=== PATIENT | male | born 1980 ===

== ENCOUNTER → 2023-05-04 00:10 | Outpatient (CLI) | payer OTHER, SELFPAY ==
--- NOTE | 2023-05-04 | DI.MRI_ITS ---
Exam(s) MR LOWER JOINT RT WO EXAM: MR LOWER JOINT RT WO CLINICAL HISTORY: INSTABILITY, PAIN WITH BENDING, XR NEG, RT KNEE PAIN, M25.561. TECHNIQUE: Multiplanar multisequence MRI was performed. COMPARISON: No exams were available for comparison FINDINGS: BONES: There is no fracture or contusion pattern. JOINTS: Articular cartilage is unremarkable. No effusion is present. TENDONS: Extensor mechanism: Unremarkable. Medial retinaculum: Unremarkable. Lateral retinaculum: Unremarkable. Popliteus: Unremarkable. MUSCLES: Unremarkable. MENISCI: There is degenerative signal seen in the body of the medial meniscus. No evidence of a tear seen. There is degenerative signal seen at the root of the lateral meniscus. No evidence of a meni scal tear. SOFT TISSUES: There is a tiny popliteal cyst. LIGAMENTS: Anterior Cruciate: There is mild hyperintense signal seen in the distal anterior cruciate ligament mccartney spicious for sprain. Posterior Cruciate: Unremarkable. Medial Collateral:Unremarkable. Lateral Collateral: Unremarkable. OTHER: IMPRESSION: 1. Degenerative changes seen in the medial and lateral menisci but no evidence of a tear. 2. Mild hyperintense signal seen in the ACL which may represent a sprain. 3. No evidence of a ligament tear. 4. Tiny popliteal cyst. DATA REPOSITORY:
== END ==
PROVIDERS: Visit Provider Nurse Practitioner Adult Health
DX: M17.11 Unilateral primary osteoarthritis, right knee (principal)
CPT/HCPCS: 73721

== ENCOUNTER → 2023-12-17 17:55 | Emergency (ER) | payer OTHER, SELFPAY ==
[2023-12-17] VITALS (39 sets, daily range): BP systolic 122–159; BP diastolic 78–103; PULSE 73–102; RESP 11–24; TEMP 36.5; O2SAT 90–100
--- NOTE | 2023-12-17 19:45 | DI.CT_ITS ---
Exam(s) CT ABDOMEN PELVIS W EXAM: CT ABDOMEN PELVIS W CLINICAL HISTORY: abd pain TECHNIQUE: Imaging Protocol: Axial computed tomography images with coronal and sagittal reformatted images were created and reviewed. CONTRAST MATERIAL: Intravenous: Omnipaque 350 Contrast volume:100 mL Oral: No COMPARISON: No exams were available for comparison FINDINGS: ABDOMEN: Lung Bases: Normal where visualized. Liver: Normal density. No measurable mass. Portal, Superior Mesenteric, and Splenic Veins: Unremarkable. Gallbladder and Biliary Tract: No radiodense calculus or dilation. Pancreas: Normal density, no abnormal calcifications or inflammatory process. Spleen: Normal. Adrenals: No masses seen. Kidneys: Normal size, contour and axis. No radiodense stones or obstructive uropathy. No masses seen. Abdominal Aorta: Abdominal portion non-dilated. Bowel: There is a 2.5 x 1.7 cm fat density lesion in the small in a small-bowel loop in the left lowe r quadrant of the abdomen. (Series 9, image 65). There is a smaller lipoma in an adjacent small bow el loop. There does appear to be an entero entero intussusception just proximal to the lesion. It m easures approximately 2.3 cm in length. No distended bowel loops are seen proximally. The appendix is fluid-filled but no Opal appendiceal inflammatory changes are seen. The appendix measures 7 mm in diameter. Peritoneal Cavity: No ascites, collection or mesenteric inflammatory response. No free air. Lymph Nodes: Within normal limits. Bones: Within normal limits for the patient's age. Soft Tissues: Unremarkable. PELVIS: Bladder: Symmetric distention, no gross wall thickening. Reproductive Organs: Unremarkable as visualized. Lymph Nodes: Within normal limits. Bones: Within normal limits for the patient's age. IMPRESSION: There is an entero entero intussusception in the small bowel in the left lower quadrant. There does appear to be an associated 2.5 x 1.7 cm lipoma in the small bowel at the site of the intussusception. No small bowel obstruction is seen. Plain film follow-up and/or repeat CT scan are suggested to keshawn tran for small-bowel obstruction. Unexpected findings RADIATION DOSE DELIVERED: Total DLP DATA REPOSITORY: All CT scans at this facility are submitted to the National Radiology Data Registry (NRDR) Dose Index Registry (DIR) with the [employer] (ACR). RADIATION OPTIMIZATION: All CT scans at this facility use at least one of these dose optimization te chniques: automated exposure control; mA and/or kV adjustment per patient size (includes targeted exa ms where dose is matched to clinical indication); or iterative reconstruction.
[2023-12-17] MEDS: Normal Saline Flush 10 ML SYR IVP (20:34)
[2023-12-17 20:36] LABS: Abs Immature Grans 0.03 10^3/uL (0.0-0.06); Absolute Basophil Count 0.06 10^3/uL (0.0-0.2); Absolute Eosinophil Count 0.27 10^3/uL (0.0-0.7); Absolute Lymphocyte Count 2.27 10^3/uL (1.2-3.4); Absolute Monocyte Count 0.84 10^3/uL (0.1-0.8); Basophils % 0.8 %; Eosinophils % 3.5 %; HCT 41.6 % (40.0-50.0); HGB 14.1 g/dL (13.5-17.5); Immature Grans % 0.4 %; Lymphocytes % 29.6 %; MCH 30.9 pg (27.0-33.0); MCHC 33.9 % (32.0-36.0); MCV 91 fL (80-95); MPV 9.3 fL (8.0-11.0); Neutrophils % 54.7 %; Platelet Count 290 10^3/uL (130-400); RBC 4.56 10^6/uL (4.36-5.78); RDW-SD 40.2 fL; WBC 7.67 10^3/uL (4.4-10.8)
[2023-12-17 20:49] LABS: PTT Activated 26.1 sec (23.6-32.8); Prothrombin Time 10.4 sec (9.1-11.1)
[2023-12-17 20:51] LABS: ALT 41 U/L (16-63); AST 26 U/L (15-37); Alkaline Phosphatase 79 U/L (46-116); Anion Gap 8.2 mmol/L (3-11); BUN 26 mg/dL (7-18); Bilirubin, Total 0.32 mg/dL (0.2-1.0); CO2 26.8 mmol/L (21.0-32.0); CREATININE 1.1 mg/dL (0.70-1.30); Calcium 9.2 mg/dL (8.5-10.1); Chloride 106 mmol/L (98-107); Estimated GFR 85.95 (mL/min/1.73m2); Glucose 103 mg/dL (74-106); Potassium 4.1 mmol/L (3.5-5.1); Sodium 141 mmol/L (136-145); Total Protein 7.4 g/dL (6.4-8.2)
[2023-12-17] MEDS: Normal Saline - Diluent 50 ML VIAL IJ (21:10)
[2023-12-17] MEDS: Omnipaque 350 MG/ML 100 ML BTL IJ (21:11)
--- NOTE | 2023-12-17 22:42 | W.ED.GENAD ---
Discharge Plan Discharge Details Chief Complaint: GI Bleed Primary Care Provider: Em Patel ED Provider: Fidel Lynch General Mode of arrival: ambulatory. Date/Time Provider Initiated Documentation: 12/17/23 18:21. Limitations to Documentation: no limitations. Information obtained by: patient and RN notes reviewed. History of Present Illness 43 year old M presents to the emergency department with the chief complaint of Rectal bleeding, described as moderate, Patient started experiencing this hour(s) (8) and it has been constant. No relieving factors improve symptom(s), No exacerbating factors reported . Patient did receive the following treatments prior to arrival, none General Stated Complaint: GI Bleed WANDA: 3 Review of Systems Constitutional Constitutional: Denies chills, Denies fever(s), Denies headache(s) and Denies lethargy ENT Ears, Nose, Mouth, and Throat: Denies headache(s) Cardiovascular Cardiovascular: Denies chest pain, Denies syncope, Denies rapid heart rate and Denies dyspnea Respiratory Respiratory: Denies dyspnea Gastrointestinal Gastrointestinal: Reports as per HPI, Reports melena, Reports hematochezia, Denies constipation, Denies diarrhea, Reports loose stools, Denies vomiting and Denies hematemesis Integumentary/Breasts Skin/Breast: Denies unusual bruising Neurologic Neurologic: Denies syncope and Denies headache(s) Exam Const General: cooperative Orientation: alert, awake and oriented x3 Resp Effort & Inspection: normal respiratory effort and able to speak in complete sentences Auscultation: clear to auscultation bilaterally Cardio Rate: regular rate Rhythm: regular rhythm Heart Sounds: S1 normal and S2 normal GI Palpation: soft, not firm, no guarding, no masses, no pulsatile masses, not rigid and tender in the LLQ and in the RLQ; not at McBurney's point, not suprapubicly, Tamayo's sign negative and Rovsing's sign negative Auscultation: normal bowel sounds Back/Spine/Pelvis Back: no CVA tenderness Neuro General: patient alert, patient awake, patient oriented x3, gait normal and moves all extremities Course Vital Signs Vital signs: Vital Signs Temperature 36.5 C 12/17/23 18:05 Pulse 102 H 12/17/23 18:05 Respiratory Rate 16 12/17/23 18:05 Blood Pressure 138/97 H 12/17/23 18:05 Pulse Oximetry 100 12/17/23 18:05 Temperature 36.5 C 12/17/23 18:05 Temperature Source Tympanic 12/17/23 18:05 Pulse 80 12/17/23 21:00 Pulse 86 12/17/23 21:30 Respiratory Rate 14 12/17/23 21:30 Respiratory Effort Normal 12/17/23 20:06 Blood Pressure 136/100 H 12/17/23 21:00 Blood Pressure Mean 107 12/17/23 21:00 Pulse Oximetry 93 12/17/23 21:30 Oxygen Delivery Method Room Air 12/17/23 18:05 Oxygen Flow Rate 0 12/17/23 18:05 Pain Level 4 12/17/23 20:06 Lab/Test Results Lab/Test Results: Laboratory Tests Range/Units 12/17/23 20:24 WBC (4.4-10.8) 10^3/uL 7.67 RBC (4.36-5.78) 10^6/uL 4.56 Hgb (13.5-17.5) g/dL 14.1 Hct (40.0-50.0) % 41.6 MCV (80-95) fL 91 MCH (27.0-33.0) pg 30.9 MCHC (32.0-36.0) % 33.9 RDW (11.8-14.1) % 12.0 Plt Count (130-400) 10^3/uL 290 MPV (8.0-11.0) fL 9.3 Immature Gran % % 0.4 Neutrophils % % 54.7 Lymphocytes % % 29.6 Monocytes % % 11.0 Eosinophils % % 3.5 Basophils % % 0.8 Nucleated RBC % (0.0-0.3) % 0.0 Absolute Neutrophils (1.2-6.7) 10^3/uL 4.20 Absolute Lymphocytes (1.2-3.4) 10^3/uL 2.27 Absolute Monocytes (0.1-0.8) 10^3/uL 0.84 H Absolute Eosinophils (0.0-0.7) 10^3/uL 0.27 Absolute Basophils (0.0-0.2) 10^3/uL 0.06 PT (9.1-11.1) sec 10.4 INR (0.9-1.1) 1.0 APTT (23.6-32.8) sec 26.1 Sodium (136-145) mmol/L 141 Potassium (3.5-5.1) mmol/L 4.1 Chloride (98-107) mmol/L 106 Carbon Dioxide (21.0-32.0) mmol/L 26.8 Anion Gap (3-11) mmol/L 8.2 BUN (7-18) mg/dL 26 H Creatinine (0.70-1.30) mg/dL 1.1 Est GFR (CKD-EPI 2020) (mL/min/1.73m2) 85.95 Glucose (74-106) mg/dL 103 Calcium (8.5-10.1) mg/dL 9.2 Magnesium (1.8-2.4) mg/dL 2.0 Total Bilirubin (0.2-1.0) mg/dL 0.32 AST (15-37) U/L 26 ALT (16-63) U/L 41 Alkaline Phosphatase (46-116) U/L 79 Total Protein (6.4-8.2) g/dL 7.4 Albumin (3.4-5.0) g/dL 4.0 ABO/Rh O Positive Antibody Screen NEGATIVE Medical Decision Making Patient presenting to the emergency department for chief complaint of abnormal stool color and lower abdominal pain and cramping. Patient reports beat like loose stools with some signs of bleeding. This started this morning along with the abdominal cramping. Patient denies any injury or trauma, does state that he takes meloxicam twice daily for migraine headaches patient denies any syncope, lightheadedness, shortness of breath or chest pain, patient denies any vomiting blood or GERD type symptoms denies any urinary symptoms. Physical exam shows mild tenderness to bilateral lower quadrants otherwise is unremarkable. Patient already had occult stool testing which showed positive for blood causing him to be sent here from [facility]. Will plan on checking labs and CT imaging. Patient is not hypotensive and checking vitals showed mild tachycardia but otherwise stable findings so we will hold off on any interventions unless patient decompensates. Reviewed patient's labs and CBC is unremarkable, CMP is also unremarkable except for BUN being elevated which may be subtle sign of GI bleed otherwise nondiagnostic labs. CT imaging reviewed along with radiologist interpretation that does show a short segment of small bowel that has evidence of intussusception. Given GI bleed and evidence of intussusception did contact [facility] who stated that they did not have any [facility] beds available. Will contact [facility] to see about their bed availability. After discussion of case with [facility] they also do not have bed availability. Will contact general surgeon on-call to discuss case with potential plan of boarding patient in the emergency department for abdominal assessment labs and potential repeat scan tomorrow. Discussed case with our general surgeon and she did request that I speak with general surgery at [facility] given the red current jelly and intussusception finding which general surgery was paged for. Imaging Data Radiologic Study: Imaging: CT Scan Radiologist's impression: Exam(s) PROCEDURE INFORMATION: Exam: CT Abdomen And Pelvis With Contrast Exam date and time: 12/17/2023 9:14 PM Age: 43 years old Clinical indication: Generalized abdominal pain TECHNIQUE: Imaging protocol: Computed tomography of the abdomen and pelvis with contrast. Contrast material: OMNI 350; Contrast volume: 100 ml; Contrast route: INTRAVENOUS (IV); COMPARISON: MR LOWER JOINT RT WO 05/04/2023 8:48 AM FINDINGS: Lungs: No acute infiltrate in either lung base. Liver: Normal. No mass. Gallbladder and biliary ducts: Normal. No calcified stones. No ductal dilation. Pancreas: Normal. No ductal dilation. Spleen: Normal. No splenomegaly. Adrenal glands: Normal. No mass. Kidneys and ureters: No hydronephrosis. No calcified renal or ureteral stones. No perinephric stranding or perinephric fluid. Stomach and bowel: No CT evidence of colitis or diverticulitis. Within the lower mid abdominal region on axial images 57-61, series 9 / coronal images 17-22, series 5, approximate 2.5 cm in length short-segment small bowel intussusception. No associated bowel obstruction. This type of incidental CT finding is usually transitory / self-limiting. On axial images 62-66, series 9 / coronal images 19-23, two benign lipomas within a lower abdominal small bowel loop (measuring 7.5 mm and 2.6 mm in size). Other lipomas as well within other lower mid abdominal small bowel loops on coronal images 13-20 and 26-27, series 5. Appendix: Normal appendix. Intraperitoneal space: No free air. No significant fluid collection. Vasculature: The abdominal aorta is normal in caliber without aneurysm or dissection. Lymph nodes: No enlarged lymph nodes. Urinary bladder: Unremarkable as visualized. Reproductive: Unremarkable as visualized. Bones/joints: Unremarkable for patient age. Soft tissues: Small fat-containing umbilical hernia. IMPRESSION: 1. Within the lower mid abdominal region on axial images 57-61, series 9 / coronal images 17-22, series 5, approximate 2.5 cm in length / short-segment small bowel intussusception. No associated bowel obstruction. This type of incidental CT finding is usually transitory / self-limiting. If clinically indicated, follow-up CT abdomen/pelvis could always be performed. 2. On axial images 62-66, series 9 / coronal images 19-23, two benign lipomas within a lower abdominal small bowel loop (measuring 7.5 mm and 2.6 mm in size). Other lipomas as well within other lower mid abdominal small bowel loops on coronal images 13-20 and 26-27, series 5. 3. Otherwise, no acute intra-abdominal or pelvic process. Dictated and Authenticated by: David Lloyd MD. Lab Data Lab results reviewed: Yes I reviewed the patient's lab results. Quality:SDOH Health Related Social Needs: No Data to Display PFSH All Active Problems (Updated 12/17/23 @ 22:43 by Fidel Lynch NP) Migraine headache (Chronic) Social History Smoking risk assessment performed?: No Alcohol Intake: former Substance use type: does not use Housing: other Sign Out Sign Out Data: Sign Out Comment: Patient signed out pending [facility] consult due to intussusception and red current jelly at the request of general surgery on-call Last updated by Fidel Lynch NP at 12/18/23 00:15
[2023-12-18] VITALS (17 sets, daily range): BP systolic 125–136; BP diastolic 74–90; PULSE 65–81; RESP 8–25; O2SAT 92–98
--- NOTE | 2023-12-18 01:07 | W.EDPROG ---
Date of service: 12/18/23 Time of Service: 01:07 Medical Decision Making Case was signed out to me pending discussion with [facility]. [facility] they call back and I spoke with Dr. Shamir Poon. He reviewed the images, he is concern for potential ingested entity causing this intussusception and/or partial obstruction and bleeding. Recommends transfer for surgical intervention. Patient will be transferred down to [facility] emergency department under Dr. Walker as the excepting in the ED, and Dr. Poon as the excepting for surgery. Patient remains hemodynamically stable. Pain controlled. I have extensively reviewed the treatment plan with the patient. I have addressed all patient concerns at this time. I have also discussed the plan with the admitting physician and they agree with the current assessment and plan and have agreed to assume responsibility for the patient. All parties demonstrate verbal understanding and agreement with our assessment and plan at this time. The documentation in this chart was dictated using [employer] dictation software. Please excuse any dictation errors. At time of transfer the patient was reassessed and continued to demonstrate No signs of acute respiratory distress requiring intubation, hemodynamic instability requiring pressor support, or rapidly declining mental status. FINDINGS: Lungs: No acute infiltrate in either lung base. Liver: Normal. No mass. Gallbladder and biliary ducts: Normal. No calcified stones. No ductal dilation. Pancreas: Normal. No ductal dilation. Spleen: Normal. No splenomegaly. Adrenal glands: Normal. No mass. Kidneys and ureters: No hydronephrosis. No calcified renal or ureteral stones. No perinephric stranding or perinephric fluid. Stomach and bowel: No CT evidence of colitis or diverticulitis. Within the lower mid abdominal region on axial images 57-61, series 9 / coronal images 17-22, series 5, approximate 2.5 cm in length short-segment small bowel intussusception. No associated bowel obstruction. This type of incidental CT finding is usually transitory / self-limiting. On axial images 62-66, series 9 / coronal images 19-23, two benign lipomas within a lower abdominal small bowel loop (measuring 7.5 mm and 2.6 mm in size). Other lipomas as well within other lower mid abdominal small bowel loops on coronal images 13-20 and 26-27, series 5. Appendix: Normal appendix. Intraperitoneal space: No free air. No significant fluid collection. Vasculature: The abdominal aorta is normal in caliber without aneurysm or dissection. Lymph nodes: No enlarged lymph nodes. Urinary bladder: Unremarkable as visualized. Reproductive: Unremarkable as visualized. Bones/joints: Unremarkable for patient age. Soft tissues: Small fat-containing umbilical hernia. IMPRESSION: 1. Within the lower mid abdominal region on axial images 57-61, series 9 / coronal images 17-22, series 5, approximate 2.5 cm in length / short-segment small bowel intussusception. No associated bowel obstruction. This type of incidental CT finding is usually transitory / self-limiting. If clinically indicated, follow-up CT abdomen/pelvis could always be performed. 2. On axial images 62-66, series 9 / coronal images 19-23, two benign lipomas within a lower abdominal small bowel loop (measuring 7.5 mm and 2.6 mm in size). Other lipomas as well within other lower mid abdominal small bowel loops on coronal images 13-20 and 26-27, series 5. 3. Otherwise, no acute intra-abdominal or pelvic process. Thank you for allowing us to participate in the care of your patient. Dictated and Authenticated by: David Lloyd MD 12/17/2023 10:40 PM Eastern Time ([place] & [place]) Quality:SDOH Health Related Social Needs: No Data to Display Sign Out Sign Out Data: Sign Out Comment: Patient signed out pending [facility] consult due to intussusception and red current jelly at the request of general surgery on-call Last updated by Fidel Lynch NP at 12/18/23 00:15 Discharge Plan Disposition Patient Disposition: Transfer-Acute Inpatient Care Specific Acute Inpt Facility: [facility] Condition: Stable Discharge Details Chief Complaint: GI Bleed Clinical Impression: GI bleed, Acquired intussusception of intestine Primary Care Provider: Em Patel ED Provider: Deacon Chiang
[2023-12-18] MEDS: Ondansetron 4 MG/2 ML VIAL (02:17)
== END | disposition short-term general hospital (02) ==
LOC: ER 12-18 01:11 → RED 12-18 02:17
PROVIDERS: Nurse Practitioner Family; Emergency Provider Student in an Organized Health Care Education/Training Program; PCP Nurse Practitioner Adult Health
DX: R10.30 Lower abdominal pain, unspecified (principal); K92.2 Gastrointestinal hemorrhage, unspecified; K56.1 Intussusception; G43.909 Migraine, unspecified, not intractable, without status migrainosus
CPT/HCPCS: 00123; 36415; 80053; 86850; 86900; 86901; 96372; 99285; 74177; 83735; 85025; 85610; 85730; J2405; J3490

== ENCOUNTER 2023-12-22 15:23 | Emergency (ER) | payer OTHER, SELFPAY ==
[2023-12-22] VITALS (25 sets, daily range): BP systolic 95–126; BP diastolic 66–94; PULSE 74–95; RESP 12–22; TEMP 36.2; O2SAT 92–99
--- NOTE | 2023-12-22 15:30 | RT.EKG_ITS ---
APPROVED REPORT Exam: Resting ECG Reason for Exam: Syncopal episode Patient Location: E HR:88 bpm ECG Measurements Heart Rate 88 AXIS ID 158 P 25 QRSd 107 QRS 17 QT 366 T 23 QTc 444 Conclusion Sinus rhythm Rate 88 No STEMI
--- NOTE | 2023-12-22 15:49 | ED.GENADUL_ITS ---
Discharge Plan Disposition Patient Disposition: [facility] Discharge Details Clinical Impression: Near syncope, Constipation Primary Care Provider: Em Patel ED Provider: Rasheeda Whitehead Discharge Instructions Additional Instructions: Please follow-up with medical staff in the next day or 2 for reevaluation of your abdomen. Continue follow-ups with [facility] as scheduled I encourage you to have regular snacks throughout the day to help maintain your blood sugar, especially as you are more likely to have change in absorption after abdominal surgery. Stay well-hydrated. In addition to MiraLAX (I recommend taking TWICE a day), please use senna daily for constipation as well. Return to emergency care if you develop new fever/chills, vomiting, chest pain/difficulty breathing, episodes of passing out, new abdominal pain/worsening abdominal pain, blood in your stool, inability to pass gas or stool, or if you are very worried and need to be rechecked again immediately HPI General Date/Time Provider Initiated Documentation: 12/22/23 15:37 . HPI Narrative: Federico is a 43-year-old male who presents to the emergency department today for evaluation of episode of near syncope. He reports that he was leaning over signing some paperwork when he suddenly felt onset of dizziness with nausea, warmth all over, tunnel vision/spots in his vision. He sat down in a chair, was unresponsive for couple of seconds but not passed out, says he was unable to answer questions because he was confused. This passed without intervention. Currently feels okay, says that he does not have any dizziness at this time. He is two days out from abdominal surgery (had part of his small intestine removed at [facility] in emergent surgery). Denies recent fever/chills, unusual headaches, vision changes, congestion, sore throat, cough, chest pain, palpitations, shortness of breath, nausea/vomiting, abdominal pain other than mild cramping attributed to recent surgery, change in urine output. He has been constipated, only producing a small number of stools since surgery, says he normally has 2-3 stools a day. He has been able to tolerate plenty of fluids, only eating small amounts of food due to concerns about constipation. Denies significant past medical history. Physical exam reassuring. Incision below umbilicus is healing well, mahsa intact, no surrounding erythema or drainage from the wound. Abdomen soft, nondistended, diffusely tender to palpation with normal active bowel sounds. Easy work of breathing, lung sounds clear bilaterally. Normal heart sounds. Patient is alert and oriented, no acute distress. Patient is afebrile, no tachycardia. DDx includes but is not limited to: vasovagal near syncope, Hypoglycemia (he did not have blood sugar checked at [facility], in ED was 112), dehydration, electrolyte imbalance, cardiac arrhythmia, thyroid dysfunction. History not consistent with seizure. I independently interpreted the following tests: EKG reassuring, normal sinus rhythm with rate 88, no changes consistent with acute ischemia. CBC remarkable for mild leukocytosis, 11.64. CMP largely reassuring, BUN slightly elevated at 21 with creatinine 1.2 c/w mild dehydration. TSH reassuring. I did review [facility] records from recent hospitalization from 12/18/2023 to 12/22/2023. Patient was taken to the OR upon arrival to [facility], small bowel resection was performed at the area of intussusception with [id number] stapled anastomosis. 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 He had an uncomplicated hospital stay, deemed stable for discharge postop day 4. Overall workup today reassuring. No red flags concerning for surgical complications, though white cell count slightly elevated above previous while inpatient (pre-op). While in the emergency department Federico was rehydrated with normal saline, given a sandwich and alicia tiarra. He admits that he has not had anything to eat since breakfast this morning. Etiology of near syncope most likely dehydration versus CT scan or hypoglycemia, although vasovagal near syncope may also possible. Recommend use of MiraLAX twice daily for constipation as well as senna. Encouraged regular snacks throughout the day to help keep blood sugar up. Educated on red flags indicating need for return to emergency care. Patient and corrections staff voiced understanding General Stated Complaint: Dizzy/Sync WANDA: 3 Review of Systems Narrative: see HPI Exam Const General: cooperative, healthy appearing, comfortable and no acute distress Nutritional Appearance: average body habitus Resp Effort & Inspection: normal respiratory effort and able to speak in complete sentences Auscultation: clear to auscultation bilaterally Cardio Rate: regular rate Rhythm: regular rhythm GI Inspection: incision (vertical, under the umbilicus, with mahsa in place) Palpation: soft, not firm, no guarding and not rigid Auscultation: normal bowel sounds Extrem General: no pedal edema Course Vital Signs Vital signs: Vital Signs Temperature 36.2 C L 12/22/23 15:30 Pulse 90 12/22/23 15:30 Respiratory Rate 15 12/22/23 15:30 Blood Pressure 111/78 12/22/23 15:30 Pulse Oximetry 98 12/22/23 15:30 Temperature 36.2 C L 12/22/23 15:30 Temperature Source Tympanic 12/22/23 15:30 Pulse 90 12/22/23 15:30 Respiratory Rate 15 12/22/23 15:35 Respiratory Effort Normal 12/22/23 15:35 Respiratory Depth Normal 12/22/23 15:35 Respiratory Pattern Normal 12/22/23 15:35 Blood Pressure 111/78 12/22/23 15:30 Blood Pressure Position Sitting 12/22/23 15:30 Pulse Oximetry 98 12/22/23 15:30 Oxygen Delivery Method Room Air 12/22/23 15:30 Oxygen Flow Rate 0 12/22/23 15:30 Pain Level 0 12/22/23 15:30 Medical Decision Making Quality:SDOH Health Related Social Needs: No Data to Display PFSH All Active Problems (Updated 12/22/23 @ 18:01 by Rasheeda Siddiqui) Constipation (Acute) Near syncope (Acute) Acquired intussusception of intestine (Acute) GI bleed (Chronic) Migraine headache (Chronic) Social History Smoking risk assessment performed?: No Alcohol Intake: former Substance use type: does not use Housing: other
[2023-12-22 17:01] LABS: Abs Immature Grans 0.07 10^3/uL (0.0-0.06); Absolute Basophil Count 0.06 10^3/uL (0.0-0.2); Absolute Eosinophil Count 0.16 10^3/uL (0.0-0.7); Absolute Lymphocyte Count 1.23 10^3/uL (1.2-3.4); Absolute Monocyte Count 0.88 10^3/uL (0.1-0.8); Basophils % 0.5 %; Eosinophils % 1.4 %; HCT 47.7 % (40.0-50.0); HGB 16.1 g/dL (13.5-17.5); Immature Grans % 0.6 %; Lymphocytes % 10.6 %; MCH 31.1 pg (27.0-33.0); MCHC 33.8 % (32.0-36.0); MCV 92 fL (80-95); MPV 9.2 fL (8.0-11.0); Monocytes % 7.6 %; Neutrophils % 79.3 %; Platelet Count 362 10^3/uL (130-400); RBC 5.18 10^6/uL (4.36-5.78); RDW 12.1 % (11.8-14.1); RDW-SD 40.9 fL; WBC 11.64 10^3/uL (4.4-10.8)
[2023-12-22 17:02] LABS: Absolute Neutrophil Count 9.23 10^3/uL (1.2-6.7)
[2023-12-22 17:18] LABS: ALT 38 U/L (16-63); AST 20 U/L (15-37); Albumin 4.2 g/dL (3.4-5.0); Alkaline Phosphatase 79 U/L (46-116); Anion Gap 8.1 mmol/L (3-11); BUN 21 mg/dL (7-18); Bilirubin, Total 0.45 mg/dL (0.2-1.0); CO2 27.9 mmol/L (21.0-32.0); CREATININE 1.2 mg/dL (0.70-1.30); Calcium 10.2 mg/dL (8.5-10.1); Chloride 102 mmol/L (98-107); Estimated GFR 77.43 (mL/min/1.73m2); Glucose 113 mg/dL (74-106); Potassium 4.4 mmol/L (3.5-5.1); Sodium 138 mmol/L (136-145); Total Protein 8.4 g/dL (6.4-8.2)
[2023-12-22 17:28] LABS: TSH 3.15 uIU/Ml (0.36-3.74)
[2023-12-22] MEDS: Normal Saline 1,000 ML 1000 ML IV (17:54)
== END 2023-12-22 19:03 ==
LOC: ER 19:41
PROVIDERS: Emergency Provider Nurse Practitioner Family; PCP Nurse Practitioner Adult Health
DX: R55 Syncope and collapse (principal); K59.00 Constipation, unspecified
CPT/HCPCS: 36416; 80053; 82962; 93005; 96360; 99284; 83735; 84443; 85025; 93010; 99283